=== PATIENT | male | born 1990 | race Caucasian/White ===

== ENCOUNTER 2025-11-21 20:26 | Emergency (ER) | payer OTHER ==
[~2025-11-21] VITALS: Ht 175.3 cm; Wt 126.0 kg
[2025-11-21 20:45] VITALS: O2SAT 98
[2025-11-21] MEDS: ACETAMINOPHEN 500MG TABLET PO ONE (22:18)
[2025-11-21] MEDS: LORAZEPAM 1MG TABLET PO ONE (22:18)
[2025-11-21] MEDS: LIDOCAINE HCL 1% 20ML VIAL INFIL ONE (22:19)
[2025-11-21 23:20] VITALS: BP 181/111; PULSE 83; RESP 18; TEMP 36.8; O2SAT 99
== END 2025-11-21 23:26 | disposition home or self-care (01) ==
LOC: ER 20:26
DX: S71.111A Laceration without foreign body, right thigh, initial encounter (principal); E11.9 Type 2 diabetes mellitus without complications; F41.9 Anxiety disorder, unspecified; I10 Essential (primary) hypertension; I83.899 Varicose veins of unspecified lower extremity with other complications; Z91.148 Patient's other noncompliance with medication regimen for other reason; X58.XXXA Exposure to other specified factors, initial encounter; Y93.89 Activity, other specified; Y92.89 Other specified places as the place of occurrence of the external cause; Y99.8 Other external cause status
CPT/HCPCS: 12001; 99283; Z7610